=== PATIENT | female | born 1995 | race African-American/Black ===

== ENCOUNTER 2017-05-07 10:19 | Emergency (ER) | payer MEDICAID ==
[~2017-05-07] VITALS: Ht 162.6 cm; Wt 64.0 kg
[2017-05-07 10:51] VITALS: BP 104/55
== END 2017-05-07 15:11 | disposition left against medical advice (07) ==
LOC: ER 10:19
DX: N94.6 Dysmenorrhea, unspecified (principal); Z53.21 Procedure and treatment not carried out due to patient leaving prior to being seen by health care provider